=== PATIENT | male | born 1975 | race Caucasian/White ===

== ENCOUNTER 2017-07-26 20:27 | Inpatient (IN) | payer OTHER ==
[~2017-07-26] VITALS: Ht 193 cm; Wt 78.0 kg
[2017-07-26] MEDS ORDERED: RAPID SEQUENCE KIT [RSI] 1 EACH KIT ONE (20:41)
[2017-07-26] MEDS ORDERED: SUCCINYLCHOLINE CHLORIDE 20 MG/ML 10 ML VIAL ONE (20:41)
[2017-07-26 20:42] LABS: GLUCOSE,POINT OF CARE > 600 MG/DL (70-110)
[2017-07-26] MEDS ORDERED: INSULIN REGULAR, HUMAN 100 UNITS/ML IVP ONE ×2 (21:00→23:15)
[2017-07-26] MEDS ORDERED: SODIUM CHLORIDE 0.9% 1,000 ML IV ONE (21:00)
[2017-07-26] MEDS ORDERED: NALOXONE HCL 1 MG/ML 2 ML SYG IVP ONE ×2 (21:00)
[2017-07-26 21:07] LABS: BASOPHILS % (AUTO) 0.3 % (0.0-2.0); EOSINOPHILS % (AUTO) 3.9 % (1.0-6.0); HEMATOCRIT 34.9 % (41-53); HEMOGLOBIN 11.8 g/dL (13.5-17.5); LYMPHOCYTES # (AUTO) 2.8 K/uL (1.0-4.8); LYMPHOCYTES % (AUTO) 40.8 % (22.0-44.0); MEAN CORPUSCULAR HEMOGLOBIN 30.6 pg (26.0-34.0); MEAN CORPUSCULAR HGB CONC 33.6 G/dL (31.0-37.0); MEAN CORPUSCULAR VOLUME 91 fL (80-100); MONOCYTES # (AUTO) 0.4 K/uL (0.1-1.0); MONOCYTES % (AUTO) 6.1 % (2.0-9.0); NEUTROPHILS # (AUTO) 3.4 K/uL (1.8-7.7); NEUTROPHILS % (AUTO) 48.9 % (40.0-70.0); PLATELET COUNT (AUTO) 254 K/uL (150-450); RED BLOOD CELL COUNT(AUTO) 3.84 MIL/uL (4.50-5.90)
[2017-07-26 21:14] LABS: ACETONE,BLOOD NEGATIVE (NEGATIVE)
[2017-07-26 21:16] LABS: ABG A-A DIFF O2 579.1 mmHg (10-20.0); ABG BASE EXCESS -8.8 mmol/L (-2.0-3.0); ABG CARBOXYHEMOGLOBIN 1.7 % (0.0-1.5); ABG HCO3 18.4 mmol/L (22.0-26.0); ABG METHEMOGLOBIN 0.5 % (0.0-1.5); ABG OXYGEN CONTENT 16.7 mL/dL (15.0-23.0); ABG OXYGEN SATURATION 97.8 % (95.0-98.0); ABG OXYHEMOGLOBIN 95.6 % (94.0-100.0); ABG PCO2 28 mmHg (35-45); ABG PH 7.378 (7.35-7.450); ABG TOTAL HEMOGLOBIN 12.3 G/dL (12.0-18.0); O2 DEVICE,BLOOD GAS NON REBREATHER (ROOM AIR); PO2, ARTERIAL BG 105.5 mmHg (84.0-92.0); SITE, BLOOD GAS RT RADIAL; SOURCE, BLOOD GAS ARTERIAL; TEMPERATURE, FAHRENHEIT, BG 98.6 FAHREN (96.0-98.6)
[2017-07-26 21:18] LABS: ALANINE AMINOTRANSFERASE 30 U/L (12-78); ALKALINE PHOSPHATASE 105 U/L (46-116); ANION GAP 17 mmol/L (8-16); ASPARTATE AMINOTRANSFERASE 19 U/L (15-37); BILIRUBIN,TOTAL 0.3 mg/dL (0.1-1.0); CALCIUM, TOTAL 8.5 mg/dL (8.8-10.5); CARBON DIOXIDE 18 mmol/L (22-29); CHLORIDE 92 mmol/L (98-107); CREATINE KINASE, TOTAL 65 U/L (39-308); CREATININE 0.99 mg/dL (0.60-1.30); GLOMERULAR FILTR. RATE CALC > 60 mL/min (>60); POTASSIUM 3.7 mmol/L (3.5-5.1); SODIUM SERUM 127 mmol/L (136-145); TOTAL PROTEIN, SERUM 6.5 g/dL (6.4-8.2); UREA NITROGEN, BLOOD 14 mg/dL (7-18)
[2017-07-26 21:22] LABS: GLUCOSE,RANDOM 660 mg/dL (70-110)
[2017-07-26 21:35] LABS: PROTHROMBIN TIME 10.1 SEC (9.4-11.6)
[2017-07-26 21:52] LABS: APPEARANCE,URINE CLEAR (CLEAR); BILIRUBIN,URINE NEGATIVE (NEGATIVE); GLUCOSE, URINE (UA) >=1000 mg/dL (NEGATIVE); KETONES,URINE TRACE mg/dL (NEGATIVE); LEUKOCYTE ESTERASE ,URINE NEGATIVE (NEGATIVE); NITRATE,URINE NEGATIVE (NEGATIVE); OCCULT BLOOD,URINE NEGATIVE (NEGATIVE); PH,URINE 5.5 (5.0-8.0); PROTEIN,URINE TRACE (NEGATIVE); UROBILINOGEN,URINE 0.2 mg/dL (<=1.0)
[2017-07-26 21:57] LABS: AMPHET/METH SCREEN,URINE NEGATIVE (NEGATIVE); BARBITURATE SCREEN, URINE NEGATIVE (NEGATIVE); BENZODIAZEPINES SCREEN,URINE NEGATIVE (NEGATIVE); CANNABINOID SCREEN,URINE POSITIVE (NEGATIVE); COCAINE SCREEN,URINE NEGATIVE (NEGATIVE); METHADONE SCREEN, URINE NEGATIVE (NEGATIVE); OPIATE SCREEN,URINE NEGATIVE (NEGATIVE)
[2017-07-26 21:59] LABS: PHENCYCLIDINE SCREEN,URINE NEGATIVE (NEGATIVE)
[2017-07-26 22:04] LABS: BACTERIA,URINE None Seen /HPF (None Seen); RBC,URINE None Seen /HPF (0-2); SQUAMOUS EPITHELIAL CELL,UR Rare /LPF (None Seen); WBC,URINE None Seen /HPF (0-5)
[2017-07-26 22:07] LABS: B-TYPE NATRIURETIC PEPTIDE 117 pg/mL (0-100)
[2017-07-26 22:12] LABS: GLUCOSE,POINT OF CARE 420 MG/DL (70-110)
[2017-07-26] MEDS ORDERED: ACETAMINOPHEN 325 MG TABLET PO PRN (23:00)
[2017-07-26] MEDS ORDERED: ONDANSETRON HCL 4 MG/2 ML VIAL IVP PRN (23:00)
[2017-07-26] MEDS ORDERED: 0.9% SODIUM CHLORIDE 10 ML SYRINGE IVP PRN (23:00)
[2017-07-26 23:17] LABS: GLUCOSE,POINT OF CARE 272 MG/DL (70-110)
[2017-07-27] VITALS (11 sets, daily range): BP systolic 96–147; BP diastolic 55–86
[2017-07-27] MEDS ORDERED: MAGNESIUM HYDROXIDE SUSPENSION 30 ML UDCUP PO PRN (00:15)
[2017-07-27] MEDS ORDERED: DEXTROSE 50%-WATER 25 GM/50 ML SYRINGE IVP PRN (00:15)
[2017-07-27] MEDS ORDERED: ZOLPIDEM TARTRATE 5 MG TABLET PO PRN (00:15)
[2017-07-27] MEDS ORDERED: ACETAMINOPHEN 325 MG TABLET PO PRN (00:15)
[2017-07-27] MEDS ORDERED: BISACODYL 10 MG RECTAL RECTAL SUPPOSITORY PR PRN (00:15)
[2017-07-27] MEDS ORDERED: IPRATROPIUM BROMIDE 0.5 MG/2.5 ML NEB SOLUTION NEB PRN (00:15)
[2017-07-27] MEDS ORDERED: ALBUTEROL SULFATE 2.5 MG/0.5 ML NEB SOLUTION NEB PRN (00:15)
[2017-07-27 00:40] LABS: ANION GAP 11 mmol/L (8-16); CALCIUM, TOTAL 8.3 mg/dL (8.8-10.5); CARBON DIOXIDE 24 mmol/L (22-29); CHLORIDE 102 mmol/L (98-107); CREATININE 0.72 mg/dL (0.60-1.30); GLOMERULAR FILTR. RATE CALC > 60 mL/min (>60); GLUCOSE,RANDOM 210 mg/dL (70-110); POTASSIUM 3.3 mmol/L (3.5-5.1); SODIUM SERUM 137 mmol/L (136-145); UREA NITROGEN, BLOOD 12 mg/dL (7-18)
[2017-07-27] MEDS: SODIUM CHLORIDE 0.9% 1,000 ML IV SCH ×2 (00:40→12:08)
[2017-07-27] MEDS: INSULIN LISPRO 100 UNITS/ML SQ PRN ×3 (00:42→16:45)
[2017-07-27 03:12] LABS: GLUCOSE,POINT OF CARE 214 MG/DL (70-110)
[2017-07-27] MEDS ORDERED: POTASSIUM CHL 10 MEQ/WATER 50 ML IV PRN (04:15)
[2017-07-27] MEDS ORDERED: POTASSIUM CHLORIDE 20 MEQ ER TABLET PO PRN ×2 (04:15)
[2017-07-27] MEDS: ONDANSETRON HCL 4 MG/2 ML VIAL IVP PRN ×2 (04:37→23:21)
[2017-07-27 04:57] LABS: BASOPHILS % (AUTO) 0.3 % (0.0-2.0); EOSINOPHILS % (AUTO) 4.3 % (1.0-6.0); HEMATOCRIT 34.5 % (41-53); HEMOGLOBIN 12.3 g/dL (13.5-17.5); LYMPHOCYTES # (AUTO) 3.1 K/uL (1.0-4.8); LYMPHOCYTES % (AUTO) 39.2 % (22.0-44.0); MEAN CORPUSCULAR HGB CONC 35.6 G/dL (31.0-37.0); MEAN CORPUSCULAR VOLUME 87 fL (80-100); MONOCYTES # (AUTO) 0.6 K/uL (0.1-1.0); MONOCYTES % (AUTO) 7.3 % (2.0-9.0); NEUTROPHILS # (AUTO) 3.8 K/uL (1.8-7.7); NEUTROPHILS % (AUTO) 48.9 % (40.0-70.0); PLATELET COUNT (AUTO) 288 K/uL (150-450); RED BLOOD CELL COUNT(AUTO) 3.96 MIL/uL (4.50-5.90)
[2017-07-27 05:19] LABS: ANION GAP 10 mmol/L (8-16); CALCIUM, TOTAL 8.7 mg/dL (8.8-10.5); CARBON DIOXIDE 26 mmol/L (22-29); CHLORIDE 103 mmol/L (98-107); CREATININE 0.62 mg/dL (0.60-1.30); GLOMERULAR FILTR. RATE CALC > 60 mL/min (>60); POTASSIUM 3.7 mmol/L (3.5-5.1); SODIUM SERUM 139 mmol/L (136-145); UREA NITROGEN, BLOOD 13 mg/dL (7-18)
[2017-07-27 05:22] LABS: GLUCOSE,POINT OF CARE 166 MG/DL (70-110)
[2017-07-27 05:27] LABS: GLUCOSE,RANDOM 181 mg/dL (70-110)
[2017-07-27] MEDS: INSULIN HUMAN NPH-REGULAR 70/30 100 UNITS/ML SQ SCH ×2 (06:27→16:44)
[2017-07-27] MEDS: MORPHINE SULFATE 4 MG/ML SYRINGE IVP PRN ×2 (06:31→20:37)
[2017-07-27 06:42] LABS: GLUCOSE,POINT OF CARE 174 MG/DL (70-110)
[2017-07-27] MEDS: HYDROCODONE/ACETAMINOPHEN 5-325 MG TABLET PO PRN ×2 (08:08→16:54)
[2017-07-27] MEDS: DOCUSATE SODIUM 100 MG CAPSULE PO SCH ×2 (08:08→20:14)
[2017-07-27] MEDS: HEPARIN SODIUM,PORCINE 5,000 UNITS/ML VIAL SQ SCH ×3 (08:08→23:18)
[2017-07-27] MEDS: PANTOPRAZOLE SODIUM 40 MG DR TABLET PO SCH (08:08)
[2017-07-27 09:29] LABS: POTASSIUM 4.2 mmol/L (3.5-5.1)
[2017-07-27 09:43] LABS: GLUCOSE,POINT OF CARE 98 MG/DL (70-110)
[2017-07-27 10:32] LABS: AMYLASE 50 U/L (25-115); CREATINE KINASE, TOTAL 71 U/L (39-308); LIPASE 184 U/L (73-393)
[2017-07-27 11:22] LABS: FREE T4 (FREE THYROXINE) 0.95 ng/dL (0.76-1.46); THYROID STIMULATING HORMONE 0.79 uIU/mL (0.36-3.74)
[2017-07-27 12:32] LABS: GLUCOSE,POINT OF CARE 72 MG/DL (70-110)
[2017-07-27] MEDS ORDERED: SODIUM CHLORIDE 0.9% 1,000 ML IV ONE (16:00)
[2017-07-27 17:42] LABS: GLUCOSE,POINT OF CARE 153 MG/DL (70-110)
[2017-07-27 19:32] LABS: GLUCOMETER DEV NAME(LOC) 6N 2D; GLUCOSE,POINT OF CARE 78 MG/DL (70-110)
[2017-07-27 23:37] LABS: GLUCOMETER DEV NAME(LOC) 6N 2D; GLUCOSE,POINT OF CARE 126 MG/DL (70-110)
[2017-07-28 00:41] VITALS: BP 111/68
[2017-07-28 04:57] VITALS: BP 96/54
[2017-07-28] MEDS: INSULIN HUMAN NPH-REGULAR 70/30 100 UNITS/ML SQ SCH (06:30)
[2017-07-28 06:37] LABS: GLUCOMETER DEV NAME(LOC) 6N 1E; GLUCOSE,POINT OF CARE 78 MG/DL (70-110)
[2017-07-28] MEDS: MORPHINE SULFATE 4 MG/ML SYRINGE IVP PRN (07:16)
[2017-07-28 07:30] VITALS: BP 125/86
[2017-07-28 07:45] VITALS: BP 152/89
[2017-07-28] MEDS: PANTOPRAZOLE SODIUM 40 MG DR TABLET PO SCH (08:08)
[2017-07-28] MEDS: HEPARIN SODIUM,PORCINE 5,000 UNITS/ML VIAL SQ SCH (08:08)
[2017-07-28] MEDS: DOCUSATE SODIUM 100 MG CAPSULE PO SCH (08:08)
[2017-07-28] MEDS: HYDROCODONE/ACETAMINOPHEN 5-325 MG TABLET PO PRN (08:09)
[2017-07-28] MEDS: INSULIN LISPRO 100 UNITS/ML SQ PRN (11:23)
[2017-07-28 11:41] VITALS: BP 141/79
[2017-07-29 05:02] LABS: GLUCOMETER DEV NAME(LOC) 6N 2D; GLUCOSE,POINT OF CARE 208 MG/DL (70-110)
== END 2017-07-28 12:56 | disposition home or self-care (01) | DRG 52 ==
LOC: EMS 20:28 → ICU 22:37 → EDBD 22:37 → 6N 07-27 18:10
PROVIDERS: ADMIT Hospitalist; ATTEND Hospitalist
DX: G92 Toxic encephalopathy (principal); E11.00 Type 2 diabetes mellitus with hyperosmolarity without nonketotic hyperglycemic-hyperosmolar coma (NKHHC); I10 Essential (primary) hypertension; E11.51 Type 2 diabetes mellitus with diabetic peripheral angiopathy without gangrene; F12.90 Cannabis use, unspecified, uncomplicated; F10.10 Alcohol abuse, uncomplicated; S00.03XA Contusion of scalp, initial encounter; Z99.3 Dependence on wheelchair; Z91.19 Patient's noncompliance with other medical treatment and regimen; Z89.511 Acquired absence of right leg below knee; W18.39XA Other fall on same level, initial encounter; Y93.89 Activity, other specified; Y92.89 Other specified places as the place of occurrence of the external cause; Y99.8 Other external cause status; Y90.9 Presence of alcohol in blood, level not specified
CPT/HCPCS: 51702; 70450; 72125; 82805; 82962; 83036; 84132; 84439; 84443; 87040; 87081; 93005; 93306; 93880; 94640; 96361; 96374; 96375; 99291; G0480; J0330; J1644; J1815; J2270; J2405; J7030